=== PATIENT | male | born 1995 | race Caucasian/White ===

== ENCOUNTER 2020-02-04 01:46 | Emergency (ER) | payer OTHER ==
[~2020-02-04] VITALS: Ht 180.3 cm; Wt 82.0 kg
[2020-02-04 02:06] VITALS: BP 139/88
== END 2020-02-04 02:50 | disposition home or self-care (01) ==
LOC: EMS 01:51
DX: Z03.89 Encounter for observation for other suspected diseases and conditions ruled out (principal)